=== PATIENT | male | born 1990 | race Caucasian/White ===

== ENCOUNTER 2019-02-03 14:25 | Emergency (ER) | payer BC ==
[2019-02-03] MEDS ORDERED: Lidocaine 1% with EPINEPHrine 1:100,000 20 ML MDV ONE (14:40)
[2019-02-03] MEDS ORDERED: Bacitracin/Neomycin/Polymyxin B Oint 0.9 GM U/D Packet ONE (14:51)
[2019-02-03] MEDS ORDERED: Bacitracin/Neomycin/Polymyxin B Oint 28.4 GM Tube TOP ONE (14:54)
[2019-02-03] MEDS ORDERED: Diphtheria,Pertussis(Acell),Tetanus Vaccine 0.5 ML Syringe IM ONE (14:55)
--- NOTE | 2019-02-03 15:24 | EDM.PDOC ---
ED HPI GENERAL MEDICAL PROBLEM - General Chief Complaint: Laceration Stated Complaint: "I cut my leg" Time Seen by Provider: 02/03/19 14:44 Source of Information: Reports: Patient History Limitations: Reports: No Limitations - History of Present Illness INITIAL COMMENTS - FREE TEXT/NARRATIVE: Jovan is a 28 yo male who presents ambulatory to the ER with a laceration to right post leg below right knee. Laceration measures 1cm wide and 3cm long. Patient states, "I was cutting a hose on a fertilizer tank and the knife slipped and I cut the back of my leg." Patient denies any difficulty walking. Last Tdap unknown. Mild amount of bleeding. Right Lower Posterior Leg Pain Score (Numeric/FACES): 3 - Related Data Allergies Allergy/AdvReac Type Severity Reaction Status Date / Time No Known Allergies Allergy Verified 02/03/19 14:37 Home Meds: Home Meds . [No Known Home Meds] 02/03/19 [History] Past Medical History - Past Health History Medical/Surgical History: Denies Medical/Surgical History - Past Surgical History HEENT Surgical History: Reports: Naso-Sinus Surgery Social & Family History - Tobacco Use Smoking Status *Q: Never Smoker - Alcohol Use Alcohol Use Frequency: Socially ED ROS GENERAL - Review of Systems Review Of Systems: ROS reveals no pertinent complaints other than HPI. ED EXAM, SKIN/RASH Exam: See Below Exam Limited By: No Limitations General Appearance: Alert, No Apparent Distress Extremities: Normal Range of Motion, Non-Tender, Other (3cm laceration to right posterior leg, distal to knee) Neurological: Alert, Oriented, Normal Cognition, No Motor/Sensory Deficits, Other Psychiatric: Normal Affect Skin: Wound/Incision (3cm laceration to posterior leg, extending into subcutaneous tissue. ) ED SKIN PROCEDURES - Laceration/Wound Repair Right Posterior Distal Leg Appearance: Subcutaneous, Linear, Clean Distal NVT: Neuro & Vascular Intact, No Tendon Injury Anesthetic Type: Local Local Anesthesia - Lidocaine (Xylocaine): 1% with EPI Local Anesthetic Volume: 5cc Skin Prep: Chlorhexidine (Hibiciens), Providone-Iodine (Betadine), Sterile Drape Exploration/Debridement/Repair: Wound Explored, In a Bloodless Field, Explored to Base, No Foreign Material Found Closed with: Sutures Suture Size: 4-0 # of Sutures: 8 Suture Type: Prolene, Simple Suture Size: 4-0 # of Sutures: 1 Repaired with: Vicryl Tetanus Status Addressed: Yes Complications: No Course - Vital Signs Last Recorded V/S: Last Vital Signs Temp 96.8 F 02/03/19 14:30 Pulse 98 02/03/19 14:30 Resp 20 02/03/19 14:30 BP 183/75 H 02/03/19 14:30 Pulse Ox 94 L 02/03/19 14:30 - Orders/Labs/Meds Orders: Active Orders 24 hr Category Date Time Status Vaccines to be Administered [RC] PER UNIT ROUTINE Care 02/03/19 14:55 Active Meds: Medications Discontinued Medications Generic Name Dose Route Start Last Admin Trade Name Freq PRN Reason Stop Dose Admin Diphtheria/Tetanus/Acell Pertussis 0.5 ml 02/03/19 14:55 Adacel IM 02/03/19 14:56 .ONCE ONE Lidocaine/Epinephrine Confirm 02/03/19 14:40 Xylocaine 1% With Epinephrine 1:100,000 Administered 02/03/19 14:41 Dose 20 ml .ROUTE .STK-MED ONE Neomycin/Polymyxin/Bacitracin 1 gm 02/03/19 14:54 Triple Antibiotic Oint TOP 02/03/19 14:55 ONETIME ONE Neomycin/Polymyxin/Bacitracin Confirm 02/03/19 14:51 Triple Antibiotic Oint Administered 02/03/19 14:52 Dose 2 each .ROUTE .STK-MED ONE Departure - Departure Time of Disposition: 15:25 Disposition: Home, Self-Care 01 Clinical Impression: Laceration of right calf without complication Qualifiers: Encounter type: initial encounter Qualified Code(s): S81.811A - Laceration without foreign body, right lower leg, initial encounter - Discharge Information Instructions: Laceration Care, Adult, [id number], Wound Care, Adult Additional Instructions: 1) Sutures out in 10-14 days 2) Watch for signs of infection (redness, swelling, drainage or warmth), if any of these symptoms return for reevaluation 3) Tylenol and ibuprofen for discomfort, as directed on bottle 4) Wound care handout provided. - Problem List & Annotations (1) Laceration of right calf without complication SNOMED Code(s): 460228224 Code(s): S81.811A - LACERATION W/O FOREIGN BODY, RIGHT LOWER LEG, INIT ENCNTR Status: Acute Qualifiers: Encounter type: initial encounter Qualified Code(s): S81.811A - Laceration without foreign body, right lower leg, initial encounter - My Orders Last 24 Hours: My Active Orders 02/03/19 14:55 Vaccines to be Administered [RC] PER UNIT ROUTINE - Assessment/Plan Last 24 Hours: My Active Orders 02/03/19 14:55 Vaccines to be Administered [RC] PER UNIT ROUTINE Plan: Wound closed without complication. Tdap updated today. No tendon or muscle body involvement noted, discussed into detail with Jovan. See additional instructions for post suture care.
== END 2019-02-03 15:43 | disposition home or self-care (01) ==
LOC: CC.ED 14:25
DX: S81.811A Laceration without foreign body, right lower leg, initial encounter (principal); W26.0XXA Contact with knife, initial encounter; Y93.89 Activity, other specified; Z23 Encounter for immunization
CPT/HCPCS: 12002; 90471; 90715; 99282